=== PATIENT | male | born 2000 | race Caucasian/White ===

== ENCOUNTER 2021-05-24 23:34 | Emergency (ER) | payer OTHER ==
[~2021-05-24] VITALS: Ht 177.8 cm; Wt 68.0 kg
--- NOTE | 2021-05-25 00:17 | PHYS DOC ---
Adult General Chief Complaint Chief Complaint: ABDOMINAL PAIN HPI HPI Patient is a 20-year-old male who presents with a chief complaint of abdominal pain, centered around the umbilicus, 6 out of 10, sharp in nature which started about an hour before coming to the emergency department about 2 hours after e ating some Thanksgiving meal. States he is never had anything like this before. Denies any recent travels, traumas, illnesses, fevers, chest pain, shortness of breath, nausea, vomiting, diarrhea, dysuria, hematuria or blood in the stool. States that shortly after coming to the emergency department the pain resolved and is feeling better. Review of Systems Review of Systems Review of systems otherwise unremarkable except noted in HPI Current Medications Current Medications Current Medications Medications (Trade) Dose Ordered Sig/Lester Start Time Stop Time Status Last Admin Dose Admin Fentanyl Citrate (Fentanyl 2ml Vial) 50 mcg 1X ONCE 05/25/21 00:15 05/25/21 00:16 UNV Physical Exam Physical Exam Constitutional: Well developed, well nourished, no acute distress, non-toxic appearance. [] HENT: Normocephalic, atraumatic, bilateral external ears normal, oropharynx moist, no oral exudates, nose normal. [] Eyes: conjunctiva normal, no discharge. [] Neck: Normal range of motion, no tenderness, supple, no stridor. [] Cardiovascular:Heart rate regular rhythm, no murmur [] Lungs & Thorax: Bilateral breath sounds clear to auscultation [] Abdomen: soft, tenderness around umbilicus with no rebound, or guarding, no masses, no pulsatile masses. [] Skin: Warm, dry, no erythema, no rash. [] Back: no CVA tenderness. [] Extremities: No tenderness, no cyanosis, no clubbing, ROM intact, no edema. [] Neurologic: Alert and oriented X 3, normal motor function, normal sensory function, no focal deficits noted. [] Psychologic: Affect normal, judgement normal, mood normal. [] EKG EKG [] Radiology/Procedures Radiology/Procedures [] Heart Score C/O Chest Pain: No Risk Factors: Risk Factors: DM, Current or recent (<one month) smoker, HTN, HLP, family history of CAD, obesity. Risk Scores: Risk Factors: DM, Current or recent (<one month) smoker, HTN, HLP, family history of CAD, obesity. Course & Med Decision Making Course & Med Decision Making Patient is a 20-year-old male who presents with a chief complaint of abdominal pain Vital signs not concerning. Physical exam noted above. Laboratory analysis not concerning. CT with no acute findings. Patient's symptoms resolved completely. Discussed all findings with patient. Discussed differential diagnosis. Advised to follow-up when he came with his primary care physician update on ED visit. Gave return precautions to the ED. Patient grateful, verbalized understanding agree with plan of discharge. Dragon Disclaimer Dragon Disclaimer This electronic medical record was generated, in whole or in part, using a voice recognition dictation system. Departure Departure: Impression: Primary Impression: Abdominal pain Disposition: HOME / SELF CARE / HOMELESS Condition: GOOD Referrals: PCP,UNKNOWN (PCP) DANITZA SHAW MD Patient Instructions: Abdominal Pain (Nonspecific) Additional Instructions: Thank you for coming into the emergency department tonight and allowing us to take care of you. Please read the attached information carefully to go back over some of the things we discussed. Over the next couple days, please eat a light clear diet as we discussed to give your bowels some rest. Please stay away from alcohol and coffee as well. Please follow-up with your primary care physician as soon as you can update on your ED visit and set up a follow-up. Please come back with new or concerning symptoms as we discussed. ANSON VALDES MD May 25, 2021 00:17
--- NOTE | 2021-05-25 01:05 | RAD ---
CT ABDOMEN+PELVIS WO History: Abdominal pain umbilical area for 3 days. Comparison: None. Technique: Noncontrast CT of the abdomen and pelvis. Findings: Lung bases are clear. The liver, gallbladder, pancreas, spleen, adrenal glands, and kidneys are unrem arkable. The bladder and prostate are within normal limits. The small bowel is unremarkable. Normal a ppendix. No colonic wall thickening or pericolonic inflammatory changes. No intra-abdominal free air or free fluid. No adenopathy. The unopacified vasculature is within normal limits. Soft tissues are u nremarkable. Osseous structures are normal. Impression: 1. No acute findings in the abdomen and pelvis. ------ Exposure: One or more of the following individualized dose reduction techniques were utilized for thi s examination: 1. Automated exposure control 2. Adjustment of the mA and/or kV according to patient size 3. Use of iterative reconstruction technique. Electronically signed by: Owen Reed MD (05/25/2021 1:02 AM) [facility]
[2021-05-25 01:10] LABS: BASO % 0 % (0-3); EOS # 0.1 x10^3/uL (0.0-0.7); EOS % 1 % (0-3); HEMATOCRIT 40.8 % (39.0-53.0); LYMPH # 1.9 x10^3/uL (1.0-4.8); LYMPH % 22 % (24-48); MEAN CORPUSCULAR HEMOGLOBIN 30 pg (25-35); MEAN CORPUSCULAR HGB CONC 34 g/dL (31-37); MEAN CORPUSCULAR VOLUME 88 fL (79-100); MONO # 0.6 x10^3/uL (0.0-1.1); MONO % 7 % (0-9); NEUT % 70 % (31-73); PLATELET COUNT 200 x10^3/uL (140-400); RED BLOOD COUNT 4.65 x10^6/uL (4.30-5.70); RED CELL DISTRIBUTION WIDTH 13.5 % (11.5-14.5); WHITE BLOOD COUNT 8.6 x10^3/uL (4.0-11.0)
[2021-05-25 01:21] LABS: CALCIUM 8.8 mg/dL (8.5-10.1); CREATININE 1.1 mg/dL (0.7-1.3); GFR 84.5; POTASSIUM 3.7 mmol/L (3.5-5.1)
[2021-05-25 01:22] LABS: BACTERIA,URINE 0 /HPF (0-FEW); BILIRUBIN,URINE NEG (NEG); CLARITY,URINE CLEAR; COLOR,URINE YELLOW; GLUCOSE,URINE NEG (NEG); NITRITE,URINE NEG (NEG); RBC,URINE 0 /HPF (0-2); SQUAMOUS EPITHELIAL CELL,UR OCC /LPF; WBC,URINE OCC /HPF (0-4)
[2021-05-25 01:23] LABS: AMORPHOUS SEDIMENT,UR PRESENT /HPF
[2021-05-25 01:29] LABS: ALBUMIN 4.1 g/dL (3.4-5.0); ALBUMIN/GLOBULIN RATIO 1.3 (1.0-1.7); TOTAL BILIRUBIN 0.7 mg/dL (0.2-1.0); TOTAL PROTEIN 7.2 g/dL (6.4-8.2)
[2021-05-25 01:45] VITALS: BP 132/85
== END 2021-05-25 01:50 | disposition home or self-care (01) ==
LOC: ER 23:34
DX: R10.9 Unspecified abdominal pain (principal)
CPT/HCPCS: 36415; 74176; 80053; 81001; 83690; 85025; J3010; 99284-25